=== PATIENT | female | born 1965 | race Caucasian/White ===

== ENCOUNTER → 2016-04-23 | Outpatient (CLI) | payer BC ==
[~2016-04-23] VITALS: Ht 160 cm; Wt 98.7 kg
[~2016-04-23] MED LIST: LSN/10125 PO; MULT-506 PO; PANTPAK PO
[2016-04-23 13:35] VITALS: BP 158/90; PULSE 86; Ht 160 cm; Wt 98.7 kg
== END | disposition home or self-care (01) ==
LOC: C.NEUR 13:19
PROVIDERS: ATTEND Internal Medicine Pulmonary Disease
DX: G47.33 Obstructive sleep apnea (adult) (pediatric) (principal)

== ENCOUNTER → 2016-04-28 | Outpatient (CLI) | payer BC ==
--- NOTE | 2016-04-28 16:37 | MAMMOGRAPHY REPORT ---
BILATERAL DIGITAL SCREENING MAMMOGRAM TOMOSYNTHESIS WITH CAD: 04/28/2016 CLINICAL HISTORY: Routine screening examination. TECHNIQUE: Breast tomosynthesis in addition to standard 2D mammography was performed. Current study was also evaluated with a Computer Aided Detection (CAD) system. COMPARISON: Comparison is made to exams dated: 04/24/2015 mammogram, 04/23/2014 mammogram, 04/04/2012 m ammogram, 04/05/2013 mammogram, 02/19/2011 mammogram, and 02/18/2010 mammogram - [facility]. BREAST COMPOSITION: There are scattered areas of fibroglandular density in both breasts. FINDINGS: There are diffuse punctate microcalcifications anteriorly within the breasts. However, t here are new grouped microcalcifications in the upper outer approximate 11:00 posterior right breast with possible associated architectural distortion, for which additional spot magnification and spot compression tomosynthesis HD views with possible ultrasound are recommended. No other new suspicious mass, architectural distortion or cluster of microcalcifications is seen evelio aterally. IMPRESSION: ACR BI-RADS CATEGORY 0: INCOMPLETE EVALUATION: NEED ADDITIONAL IMAGING EVALUATION The new grouped microcalcifications with possible associated architectural distortion in the right u pper outer breast needs additional evaluation. The patient will be called to schedule an appointment. Approximately 10% of breast cancers are not detected with mammography. A negative mammographic repor t should not delay biopsy if a clinically suggestive mass is present. Netta Christine M.D. ay/:04/28/2016 16:23:07 Derrick Boat Operator: Edwige PACE)(Jessica), [facility] letter sent: Addl Imaging 0 BI-RADS Code: ACR BI-RADS Category 0: Incomplete Evaluation: Need Additional Imaging Evaluation
== END | disposition home or self-care (01) ==
LOC: C.MAMM 12:03
PROVIDERS: ATTEND Obstetrics & Gynecology
DX: Z12.31 Encounter for screening mammogram for malignant neoplasm of breast (principal); R92.0 Mammographic microcalcification found on diagnostic imaging of breast

== ENCOUNTER → 2016-07-22 | Outpatient (CLI) | payer BC ==
--- NOTE | 2016-07-22 13:17 | DIAGNOSTIC IMAGING REPORT ---
RIGHT FOOT MIN 3 VIEWS ROUTINE CLINICAL HISTORY: FOOT PAIN Right pain COMPARISON: None. DISCUSSION: Soft tissue edema dorsal to the metatarsals. Bunion deformity distal first metatarsal. Mild hallux CONFIGURATION. No abnormal depressed reaction. There is no evidence for soft tissue swelling. IMPRESSION: Mild degenerative change. No acute bony abnormality. Electronically signed by: Cortes Beth M.D. 07/22/2016 1:15 PM Dictated Date/Time: 07/22/2016 1:12 PM
== END | disposition home or self-care (01) ==
LOC: C.RAD 12:31
PROVIDERS: ATTEND Family Medicine
DX: M79.671 Pain in right foot (principal)

== ENCOUNTER → 2016-08-24 | Outpatient (CLI) | payer BC | END | disposition home or self-care (01) | LOC: C.PAPS 17:46 | PROVIDERS: ATTEND Obstetrics & Gynecology | DX: Z01.419 Encounter for gynecological examination (general) (routine) without abnormal findings (principal) ==

== ENCOUNTER → 2016-11-10 | Outpatient (CLI) | payer BC ==
--- NOTE | 2016-11-10 13:32 | MAMMOGRAPHY REPORT ---
UNILATERAL RIGHT DIGITAL DIAGNOSTIC MAMMOGRAM TOMOSYNTHESIS WITH CAD AND TARGETED RIGHT ULTRASOUND: CLINICAL HISTORY: 50-year-old woman presents for follow-up in the right breast of nodular areas in th e 9:00 and 12:00 axes on prior ultrasound, and also benign-appearing microcalcifications in the right upper outer quadrant. TECHNIQUE: Right breast CC and MLO 2-D and tomosynthesis images, spot magnification right CC and ML v iews were obtained. Current study was also evaluated with a Computer Aided Detection (CAD) system. COMPARISON: Comparison is made to exams dated: 05/04/2016 ultrasound, 05/04/2016 mammogram, 04/28/2016 mammogram, 04/24/2015 mammogram, 04/23/2014 mammogram, and 04/05/2013 mammogram - [facility]. BREAST COMPOSITION: There are scattered areas of fibroglandular density in the right breast. FINDINGS: The breast bregma pattern is similar to prior exams. There is no focal area of architectu ral distortion, developing asymmetry or obvious new mass. There are microcalcifications in the right breast, most numerous in the upper outer anterior aspect of the breast. On the spot magnification v iews, many of the calcifications demonstrate layering confirming benign milk of calcium. However, no t all of the calcifications in the anterior breast layer to confirm benignity and therefore they quintin in indeterminate. These also appear slightly increased in number and conspicuity comparing to more r emote prior mammograms. I discussed these findings with the patient and described the benign feature s, however she desires a biopsy for definitive confirmation. Would recommend biopsy of largest congl omerate of punctate microcalcifications in the upper outer anterior aspect of the breast that measure s approximately 3.7 x 2.4 x 2.6 cm. Targeted ultrasound was performed in the upper outer quadrant of the right breast. 2 parallel hypoec hoic nodular areas are identified in the 9:00 axis, 1 cm and 2 cm from the nipple. The area located 2 cm from the nipple measures 3.8 x 2.6 x 6.3 mm and has not significantly changed compared to the pr ior ultrasound. The second area 1 cm from the nipple is similar in appearance and contains internal punctate calcifications, measuring 5.5 x 2.5 x 7.4 mm. A benign anechoic cyst is again seen in the 1 2:00 right breast, 1 cm from the nipple measuring 4.5 x 2.6 mm. Another hypoechoic parallel nodular area in the 12:00 axis, 1 cm from the nipple measures 4.8 x 2.2 x 2.8 mm. IMPRESSION: ACR BI-RADS CATEGORY 4: SUSPICIOUS, TARGETED ULTRASOUND ACR BI-RADS CATEGORY 4: SUSPICIO US 1. There are probable fibrocystic changes throughout the right breast both mammographically and sono graphically. 2. Punctate microcalcifications in the upper outer anterior right breast appear slightly increased i n conspicuity and number compared to more remote mammograms. Many of the calcifications demonstrate layering on the spot magnification ML views suggesting benign milk of calcium. Nevertheless, definit kavin characterization with a stereotactic guided biopsy is recommended. 3. Benign-appearing parallel hypoechoic nodular areas within the 9:00 and 12:00 axes of the right br east most likely represent focal fibrocystic changes, given the internal punctate calcifications. Pe nding benign pathology results from the right breast stereotactic biopsy, another six-month follow-up targeted ultrasound is recommended to ensure longer stability. Annual bilateral mammography will al so be due at that time. These results and recommendations were discussed with the patient at the time of the exam. She tenta tively scheduled the right breast stereotactic biopsy prior to leaving our department. Approximately 10% of breast cancers are not detected with mammography. A negative mammographic report should not delay biopsy if a clinically suggestive mass is present. Netta Christine M.D. ay/:11/10/2016 09:35:10 Excelsior Picker: Jeff WEINSTEIN(R)(M), [facility] letter sent: Abnormal 4/5 BI-RADS Code: ACR BI-RADS Category 4: Suspicious Ultrasound BI-RADS: ACR BI-RADS Category 4: Suspici ous
== END | disposition home or self-care (01) ==
LOC: C.MAMM 07:58
PROVIDERS: ATTEND Obstetrics & Gynecology
DX: N64.9 Disorder of breast, unspecified (principal); R92.0 Mammographic microcalcification found on diagnostic imaging of breast

== ENCOUNTER → 2016-11-12 | Outpatient (CLI) | payer BC ==
--- NOTE | 2016-11-12 10:09 | Discharge Instructions ---
Discharge Instructions Procedure Procedure Date: Nov 12, 2016. Reason for visit: Right Calcs. Discharge Discharge Date: Nov 12, 2016. Discharge Diagnosis: post right breast stereotactic guided biopsy Instructions Activity Recommendations: Additional Limitations (see below) Return to School/Work: no limitations Recommended Home Diet: No Limitations Provider Instructions: ACTIVITY RECOMMENDATIONS: * No lifting, pushing, pulling or exercising the affected side for three days. RETURN TO SCHOOL/WORK: * You may return to work/school after the procedure, but do not perform any strenuous activities for 24 to 48 hours. MEDICATIONS: * Tylenol (two 325 mg) every four to six hours if needed for mild pain (if not allergic to Tylenol). DIET: * Resume previous diet. SPECIAL CARE INSTRUCTIONS: * Keep biopsy site dry for 24 hours. May shower after 24 hours, but do not soak (bathe) incision. * May remove Tegaderm (plastic patch) tomorrow AFTER showering. * Leave the steri-strips on for one week. Allow the steri-strips to fall off by themselves. If not off after one week, you may remove them. You may place a Bandaid crosswise over the strips, if desired. * Apply ice 10 minutes on and 10 minutes off as needed. * Wear a bra at bedtime to sleep more comfortably for 2-3 days. * Your referring physician should have the results after approximately 5 to 7 business days. * Call for unusual bleeding, fever, drainage, etc or if you have any questions call [phone] during normal business hours or after hours call Dr Christine, . FOLLOW UP VISIT: Follow-up with Referring Physician as scheduled. Allergies Coded Allergies: Meperidine (Verified Allergy, Unknown, 11/20/14) Mestranol (Verified Allergy, Unknown, CONTROL PILLS, 11/20/14) Oxycodone (Verified Allergy, Unknown, PERCOCET, 11/20/14) Progestins (Verified Allergy, Unknown, CONTROL PILLS, 11/20/14) Sav Magallanes Recommendations: Call your doctor if: * Temperature above 101 degrees * Pain not relieved by pain medicine ordered * There is increased drainage or redness from any incision * You have any unanswered questions or concerns. Your Doctors Instructions noted above were prepared by provider Netta Christine. Patient Signature Section: Patient Instructions Signature Page Pallavi Terrell Patient (or Guardian) Signature/Date: I have read and understand the instructions given to me by my caregivers. Caregiver/RN/Doctor Signature/Date: The above-named patient and/or guardian has received patient instructions on this date. + Original Patient Signature Page (only) stays with chart. Please make copy for patient.
--- NOTE | 2016-11-12 13:24 | MAMMOGRAPHY REPORT ---
THIS REPORT HAS BEEN AMENDED. STEREOTACTIC GUIDED BIOPSY RIGHT BREAST: 11/12/2016 CLINICAL HISTORY: Patient presents for stereotactic guided biopsy of a 3.5 cm cluster of punctate and amorphous microcalcifications in the upper outer anterior right breast. COMPARISON: Comparison is made to exams dated: 11/10/2016 ultrasound, 11/10/2016 mammogram, 05/04/2016 mammogram, 04/28/2016 mammogram, 04/24/2015 mammogram, and 04/23/2014 mammogram - [facility] nt. PATIENT CONSENT: After explaining the risks, benefits and alternatives of the procedure to the patien t, informed consent was obtained both verbally and in writing. Specific risks include: Bleeding, inf ection, puncture of adjacent structure, pain, nontarget biopsy, sampling error, metal allergy and med ication reaction. PROCEDURE DESCRIPTION: A time-out was performed and the right breast was confirmed as the site of bio psy. The patient was placed prone on the stereotactic biopsy table and the breast was placed in CC fr om above compression. A services delivery driver image was obtained that demonstrated the clustered microcalcifications in question. They are amenable to sterotactic biopsy. Then +15 and -15 stereo pair images were obt ained. The calcifications were targeted utilizing the coordinates obtained by the computer. The skin was prepped with Betadine. 1% Lidocaine with and without epinipherine was administered as local anes thesia. A small skin incision was made. Through the incision, the needle was inserted to the depth d etermined by the computer. 8 samples were obtained using a [employer] 9-gauge vacuum-assisted biopsy device. The specimen radiograph demonstrated several printing supplies sales representative microcalcifications, therefore, a metallic marker was placed at the biopsy site. There was no immediate complication. Hemostasis was achieved after several minutes of manual compression. The samples were sent to pathology in a single container as punctate microcalcifications were seen within nearly every core sample. Postprocedure CC and ML views of the right breast were obtained. There is a new dumbbell-shaped met allic biopsy marker in the 12:00 anterior right breast. A small, 11 x 17 mm hematoma is seen at the biopsy site. Residual punctate microcalcifications are also present. IMPRESSION: STEREOTACTIC GUIDED BIOPSY Status post are detected guided biopsy of clustered microcalcifications in the 12:00 anterior right b reast, with biopsy marker placed at the site. The patient will receive notification of the biopsy results from her referring physician. Pending benign pathology results from the stereotactic guided biopsy, a follow-up targeted ultrasound in the right breast 9:00 and 12:00 axes is recommended in 6 months to ensure stability of hypoechoic nodular area seen on prior ultrasounds. Annual bilateral mammography will also be due at that time. Netta Christine M.D. ay/:11/12/2016 11:43:38 Geophysical Support Specialist: Laureen PACE)(Jessica), [facility] AMENDMENT: 11/18/2016 Netta Christine M.D. Pathology results from the stereotactic guided biopsy of clustered calcifications in the anterior upp er outer right breast yielded fibrocystic change, usual ductal hyperplasia and associated microcalcif ications present. The pathology results are concordant with the imaging appearance. As per prior diagnostic mammogram/ultrasound recommendations, another short interval follow-up target ed right breast ultrasound is recommended to ensure stability in the 9:00 and 12:00 axes in 6 months time.
--- NOTE | 2016-11-12 13:24 | MAMMOGRAPHY REPORT ---
UNILATERAL RIGHT DIGITAL DIAGNOSTIC MAMMOGRAM: 11/12/2016 CLINICAL HISTORY: Status post stereotactic biopsy of clustered microcalcifications in the 11:00 to 12 :00 anterior right breast. Please refer to the report from right breast stereotactic biopsy performed at the same time for full detail. IMPRESSION: POST PROCEDURE IMAGING FOR MARKER PLACEMENT Please refer to the report from right breast stereotactic biopsy performed at the same time for full detail. Approximately 10% of breast cancers are not detected with mammography. A negative mammographic report should not delay biopsy if a clinically suggestive mass is present. Netta Christine M.D. ay/:11/12/2016 10:11:44 Sapphire Stylus Grinder: Laureen WEINSTEIN(Lisa)(Jessica), [facility] BI-RADS Code: Post Procedure Imaging For Marker Placement
== END | disposition home or self-care (01) ==
LOC: C.MAMM 09:25
PROVIDERS: ATTEND Obstetrics & Gynecology
DX: R92.0 Mammographic microcalcification found on diagnostic imaging of breast (principal)

== ENCOUNTER → 2017-05-13 | Outpatient (CLI) | payer OTHER ==
--- NOTE | 2017-05-13 13:44 | MAMMOGRAPHY REPORT ---
BILATERAL DIGITAL DIAGNOSTIC MAMMOGRAM TOMOSYNTHESIS WITH CAD AND TARGETED RIGHT ULTRASOUND: 8 CLINICAL HISTORY: Short interval follow-up of right breast masses. Status post benign stereotactic b iopsy of the right breast October 2016. TECHNIQUE: Breast tomosynthesis in addition to standard 2D mammography was performed. Current study was also evaluated with a Computer Aided Detection (CAD) system. Bilateral CC and MLO 2-D and tomosy nthesis images were obtained. COMPARISON: Comparison is made to exams dated: 11/12/2016 mammogram, 04/28/2016 mammogram, 04/23/2014 ma mmogram, 04/05/2013 mammogram, 04/04/2012 mammogram, and 02/19/2011 mammogram - [facility]. BREAST COMPOSITION: There are scattered areas of fibroglandular density in both breasts. FINDINGS: There are no suspicious masses, calcifications, or areas of architectural distortion noted in either breast mammographically. There has been no significant interval change compared to prior exams. Bilateral benign-appearing calcifications are not significantly changed. A biopsy marker cli p is seen within the right breast from prior benign stereotactic biopsy. Targeted ultrasound was performed of the area of the previously seen right breast masses for which a follow-up was recommended. In the right breast at 9:00, approximately 1 cm from the nipple, again no ankita is a mixed anechoic and isoechoic mass with a few punctate internal calcifications, measuring 5 x 2 x 9 mm.The mass is not significantly changed compared to the prior October 2016 ultrasound exam where the mass measured 9 x 4 x 3 mm. A similar appearing mass is seen within the right breast at 9:00, 2 cm from the nipple, which also contains internal calcifications, measuring 7 x [address] The mass is st able dating back to the April 2016 exam. The masses are benign and compatible with fibrocystic sherine nges. In the right breast at 12:00, 1 cm from the nipple, there are 2 adjacent anechoic masses, one of which measures 3 x 4 mm and is consistent with a benign simple cyst. The other measures 7 x 4 mm and contains internal punctate calcifications. The mass is not significantly changed dating back to the April 2016 exam and is benign and compatible with fibrocystic changes. Overall, the masses are not significantly changed and are benign and compatible with fibrocystic changes. IMPRESSION: ACR BI-RADS CATEGORY 2: BENIGN, TARGETED ULTRASOUND ACR BI-RADS CATEGORY 2: BENIGN There is no mammographic or targeted sonographic evidence of malignancy. A 1 year screening mammogram is recommended. The patient has been verbally notified of the results. Approximately 10% of breast cancers are not detected with mammography. A negative mammographic report should not delay biopsy if a clinically suggestive mass is present. Ines Causey M.D. ah/:05/13/2017 08:46:27 Chucking And Sawing Machine Operator: Edwige PACE)(Jessica), [facility] letter sent: Normal /2 BI-RADS Code: ACR BI-RADS Category 2: Benign Ultrasound BI-RADS: ACR BI-RADS Category 2: Benign
== END | disposition home or self-care (01) ==
LOC: C.MAMM 07:45
PROVIDERS: ATTEND Obstetrics & Gynecology
DX: Z09 Encounter for follow-up examination after completed treatment for conditions other than malignant neoplasm (principal)

== ENCOUNTER → 2017-09-01 | Outpatient (CLI) | payer OTHER | END | disposition home or self-care (01) | LOC: C.PAPS 11:36 | PROVIDERS: ATTEND Obstetrics & Gynecology | DX: Z01.419 Encounter for gynecological examination (general) (routine) without abnormal findings (principal) ==

== ENCOUNTER → 2017-11-10 | Outpatient (CLI) | payer OTHER ==
--- NOTE | 2017-11-10 11:51 | DIAGNOSTIC IMAGING REPORT ---
L ANKLE MIN 3 VIEWS CLINICAL HISTORY: F/U LEFT ANKLE FX fracture COMPARISON: 10/08/2017 DISCUSSION: Fracture tip distal fibula unchanged. No significant To reaction or callus formation. Mild soft tissue edema. Ankle mortise is aligned anatomically. IMPRESSION: Fracture tip distal fibula showing no change from the prior exam. Alignment remains anatomic. The above report was generated using voice recognition software. It may contain grammatical, syntax or spelling errors. Electronically signed by: Cortes Beth M.D. 11/10/2017 11:50 AM Dictated Date/Time: 11/10/2017 11:48 AM
== END | disposition home or self-care (01) ==
LOC: C.RDSM 10:41
PROVIDERS: ATTEND Physician Assistant
DX: S89.392D Other physeal fracture of lower end of left fibula, subsequent encounter for fracture with routine healing (principal); X58.XXXA Exposure to other specified factors, initial encounter